=== PATIENT | male | born 2000 | race Caucasian/White ===

== ENCOUNTER 2018-09-21 03:31 | Emergency (ER) | payer BC ==
[2018-09-21] MEDS ORDERED: Ondansetron PF 4 MG/2 ML Vial ONE (03:39)
== END 2018-09-21 05:11 | disposition home or self-care (01) ==
LOC: ERS 03:31
DX: F10.129 Alcohol abuse with intoxication, unspecified (principal)
CPT/HCPCS: 96361; 96374; J2405